=== PATIENT | male | born 1950 | race Caucasian/White ===

== ENCOUNTER 2020-05-03 21:03 | Emergency (ER) | payer MEDICARE, OTHER ==
[2020-05-03] MEDS ORDERED: Magnesium Citrate Solution 296 ML Bottle PO ONE (21:15)
[2020-05-03] MEDS: HYDROmorphone 1 MG/ML Syringe IVPUSH PRN ×2 (22:07→23:01)
[2020-05-03 22:29] LABS: CHLORIDE,CL 100 mEq/L (98-106); SODIUM,NA 140 mEq/L (136-145)
[2020-05-03] MEDS ORDERED: Acetaminophen/oxyCODONE 325-5 MG Tab PO ONE (22:47)
--- NOTE | 2020-05-03 22:59 | EDM.PDOC ---
ED HPI GENERAL MEDICAL PROBLEM - General Chief Complaint: Abdominal Pain Stated Complaint: abd fullness/constipation Time Seen by Provider: 05/03/20 21:32 Source of Information: Reports: Patient, Old Records History Limitations: Reports: No Limitations - History of Present Illness INITIAL COMMENTS - FREE TEXT/NARRATIVE: Jae is a 69 yo male who presents to the ED with c/o right sided flank pain. He feels like he is constipated as he has severe pain and pressure to right side. Reports he has not had a BM in 4 days and was getting IV pain medication while recently hospitalized in [place]. Does report he had a procedure done at [facility] today for right sided hydronephrosis. He reports pain is 8/10. He appears very uncomfortable, frequently changing positions in attempt to get comfortable. Is passing flatus, but it is minimal. He denies any fever, chills, N/V/D, chest pain, shortness of breath, urinary symptoms. Onset: Today Duration: Getting Worse Location: Reports: Abdomen (right flank) Quality: Reports: Sharp, Stabbing Severity: Severe Improves with: Reports: None Associated Symptoms: Reports: No Other Symptoms Middle Abdomen Pain Score (Numeric/FACES): 8 - Related Data Allergies Allergy/AdvReac Type Severity Reaction Status Date / Time shellfish derived Allergy Hives Verified 05/03/20 21:19 Home Meds: Home Meds . [Unable to Verify Home Med List] 05/03/20 [History] Past Medical History Cardiovascular History: Reports: High Cholesterol, Hypertension Endocrine/Metabolic History: Reports: Diabetes, Type II - Past Surgical History HEENT Surgical History: Reports: Tonsillectomy Social & Family History - Family History Family Medical History: No Pertinent Family History - Tobacco Use Tobacco Use Status *Q: Current Every Day Tobacco User Years of Tobacco use: 30 Packs/Tins Daily: 0.5 - Caffeine Use Caffeine Use: Reports: None - Recreational Drug Use Recreational Drug Use: No ED ROS GENERAL - Review of Systems Review Of Systems: Comprehensive ROS is negative, except as noted in HPI. ED EXAM, RENAL/ - Physical Exam Exam: See Below Exam Limited By: No Limitations General Appearance: Alert, WD/WN, No Apparent Distress Neck: Normal Inspection, Supple, Non-Tender, Full Range of Motion Respiratory/Chest: No Respiratory Distress, Lungs Clear, Normal Breath Sounds, No Accessory Muscle Use, Chest Non-Tender Cardiovascular: Normal Peripheral Pulses, Regular Rate, Rhythm, No Edema, No Gallop, No JVD, No Murmur, No Rub GI/Abdominal: Soft, Tender (RUQ), Abnormal Bowel Sounds (hypoactive). No: Guarding, Rigid, Rebound Back Exam: Normal Inspection, Full Range of Motion. No: CVA Tenderness (L), CVA Tenderness (R) Extremities: Normal Inspection, Normal Range of Motion, Non-Tender, Normal Capillary Refill, No Pedal Edema Neurological: Alert, Oriented, CN II-XII Intact, Normal Cognition, Normal Gait, Normal Reflexes, No Motor/Sensory Deficits Psychiatric: Anxious Skin Exam: Warm, Dry, Intact, Normal Color, No Rash Course - Vital Signs Last Recorded V/S: Last Vital Signs Temp 98.7 F 05/03/20 21:04 Pulse 69 05/03/20 21:04 Resp 20 05/03/20 21:04 BP 152/73 H 05/03/20 21:04 Pulse Ox 96 05/03/20 21:04 - Orders/Labs/Meds Orders: Active Orders 24 hr Category Date Time Status Enema [RC] ASDIRECTED Care 05/03/20 22:04 Active Enema [RC] ASDIRECTED Care 05/03/20 22:23 Active Abdomen 2V AP Flat Upright [CR] Stat Exams 05/03/20 21:15 Ordered Abdomen Pelvis wo Cont [CT] Routine Exams 05/03/20 Taken UA RFX MAXX AND CULT IF INDIC [URIN] Stat Lab 05/03/20 22:14 Ordered HYDROmorphone [Dilaudid] Med 05/03/20 22:00 Active 1 mg IVPUSH Q1H PRN Medication Orders Hydromorphone HCl (Hydromorphone 1 Mg/Ml Syringe) 1 mg IVPUSH Q1H PRN PRN Reason: Pain Last Admin: 05/03/20 22:07 Dose: 1 mg Documented by: SERENITY Labs: Laboratory Tests 05/03/20 05/03/20 Range/Units 22:02 22:02 WBC 7.2 (5.0-10.0) 10^3/uL RBC 4.28 L (4.50-6.00) 10^6/uL Hgb 12.0 L (14.0-18.0) g/dL Hct 37.0 L (40.0-54.0) % MCV 86.4 (82.0-94.0) fL MCH 28.0 (27.0-32.0) pg MCHC 32.4 L (33.0-38.0) g/dL RDW Coeff of Olga 14.8 (11.0-15.0) % Plt Count 263 (150-400) 10^3/uL Neut % (Auto) 81.4 (35-85) % Lymph % (Auto) 8.9 L (10-55) % [place] % (Auto) 8.7 (0-16) % Eos % (Auto) 0.7 (0-5) % Baso % (Auto) 0.3 (0-3) % Neut # (Auto) 5.87 (1.80-7.00) 10^3/uL Lymph # (Auto) 0.64 L (1.00-4.80) 10^3/uL [place] # (Auto) 0.63 (0.00-0.80) 10^3/uL Eos # (Auto) 0.05 (0.00-0.45) 10^3/uL Baso # (Auto) 0.02 10^3/uL Sodium 140 (136-145) mEq/L Potassium 3.6 (3.5-5.0) mEq/L Chloride 100 (98-106) mEq/L Carbon Dioxide 27 (21-32) mmol/L BUN 19 H (7-18) mg/dL Creatinine 2.0 H (0.7-1.3) mg/dL Est Cr Clr Drug Dosing 34.20 mL/min Estimated GFR (MDRD) 33 L (>=60) mL/min Glucose 139 H (75-99) mg/dL Calcium 9.1 (8.4-10.1) mg/dL Total Bilirubin 0.4 (0.0-1.0) mg/dL AST 17 (15-37) U/L ALT 22 (12-78) U/L Alkaline Phosphatase 76 (46-116) U/L C-Reactive Protein < 0.2 L (0.2-0.8) mg/dL Total Protein 7.2 (6.4-8.2) g/dL Albumin 3.8 (3.4-5.0) g/dL Meds: Medications Generic Name Dose Route Start Last Admin Trade Name Anna PRN Reason Stop Dose Admin Hydromorphone HCl 1 mg 05/03/20 22:00 05/03/20 22:07 Hydromorphone 1 Mg/Ml Syringe IVPUSH 1 mg Q1H PRN Administration Pain Discontinued Medications Generic Name Dose Route Start Last Admin Trade Name Anna PRN Reason Stop Dose Admin Magnesium Citrate 1 ml 05/03/20 21:15 05/03/20 21:33 Magnesium Citrate Solution 296 Ml Bottle PO 05/03/20 21:16 295 ml ONETIME ONE Administration Oxycodone/Acetaminophen 1 tab 05/03/20 22:47 Acetaminophen/Oxycodone 325-5 Mg Tab PO 05/03/20 22:48 ONETIME ONE - Re-Assessments/Exams Free Text/Narrative Re-Assessment/Exam: Consulted with [facility] urologist, Dr. Hickman, who did patients procedure today. He recommends toradol for pain and if unable to manage pain, patient will need a nephrostomy tube. Patient did recieve 1 mg Dilaudid, which did help alleviate pain, but patient remains in distress due to pain. He is pacing around trying to find comfortable position. Labs now resulted and reveals creatinine of 2.0, which is up from creatinine of 1.6 on 05/01/2020. I am not comfortable giving him Toradol with creatinine elevated. Again consulted with [facility] one call. Discussed case with Dr. Drake who accepted the patient for transfer. Patient will be admitted for pain control overnight and plan for nephrostomy tube in am. Patient wishes to transfer via private vehicle. Will give patient another dose of IV dilaudid as well as Percocet for pain management enroute. Discussed that we could arrange for EMS transfer so he could receive pain medications enroute, but patient wishes to go via private vehicle. Discussed risks and benefits of transfer with patient. Risks of transfer include worsening of condition, pain, MVA enroute. Benefits of transfer include consultation for nephrostomy tube and pain relief. Risks of nontransfer include worsening of condition and pain. Benefits of nontransfer include convenience. Patient verbalized understanding and was agreeable to transfer via private vehicle. Departure - Departure Time of Disposition: 22:54 Disposition: DC/Tfer to Acute Hospital 02 Condition: Fair Clinical Impression: Hydronephrosis of right kidney Constipation Qualifiers: Constipation type: drug induced constipation Qualified Code(s): K59.03 - Drug induced constipation - Discharge Information *PRESCRIPTION DRUG MONITORING PROGRAM REVIEWED*: Not Applicable *COPY OF PRESCRIPTION DRUG MONITORING REPORT IN PATIENT NIYA: Not Applicable Instructions: Hydronephrosis Forms: ED Department Discharge Additional Instructions: - Discussed with patient that he will be transferred to [place] via private vehicle as he will likely need a nephrostomy tube to drain his right kidney - Go directly to [facility] where you will be admitted for pain control overnight and nephrostomy tube placement in the morning. - Nothing to eat or drink after midnight while enroute, as you will have procedure tomorrow Sepsis Event Note (ED) - Evaluation Sepsis Screening Result: No Definite Risk - Focused Exam Vital Signs: Vital Signs Temp Pulse Resp BP Pulse Ox 05/03/20 21:04 98.7 F 69 20 152/73 H 96 - Problem List & Annotations (1) Constipation SNOMED Code(s): 98404409 Code(s): K59.00 - CONSTIPATION, UNSPECIFIED Status: Acute Current Visit: Yes Qualifiers: Qualified Code(s): K59.03 - Drug induced constipation (2) Hydronephrosis of right kidney SNOMED Code(s): 15122620 Code(s): N13.30 - UNSPECIFIED HYDRONEPHROSIS Status: Acute Current Visit: Yes - Problem List Review Problem List Initiated/Reviewed/Updated: Yes - My Orders Last 24 Hours: My Active Orders 05/03/20 Abdomen Pelvis wo Cont [CT] Routine 05/03/20 21:15 Abdomen 2V AP Flat Upright [CR] Stat 05/03/20 22:00 HYDROmorphone [Dilaudid] 1 mg IVPUSH Q1H PRN 05/03/20 22:04 Enema [RC] ASDIRECTED 05/03/20 22:14 UA RFX MAXX AND CULT IF INDIC [URIN] Stat 05/03/20 22:23 Enema [RC] ASDIRECTED - Assessment/Plan Last 24 Hours: My Active Orders 05/03/20 Abdomen Pelvis wo Cont [CT] Routine 05/03/20 21:15 Abdomen 2V AP Flat Upright [CR] Stat 05/03/20 22:00 HYDROmorphone [Dilaudid] 1 mg IVPUSH Q1H PRN 05/03/20 22:04 Enema [RC] ASDIRECTED 05/03/20 22:14 UA RFX MAXX AND CULT IF INDIC [URIN] Stat 05/03/20 22:23 Enema [RC] ASDIRECTED Assessment:: Hydronephrosis, Right Constipation Plan: 69 yo presents to Ed with c/o right sided flank/abdominal pain. Initially felt as though he was constipated as he had not had BM in 4 days and was recieving pain medications while hospitalized in [place]. After further discussion was noted to have cysto with retrograde pyelography today. Opted to proceed with CT abdomen/pelvis. CT did reveal significant right sided hydronephrosis, with what appears to be contrast dye from procedure this morning. Does have moderate stool burden, but thought to be less likely cause of pain. Patient did receive mag citrate as well as Fleets enema with little results of stool. Throughout Ed stay he was very uncomfortable, rating pain 8/10. Was given total of 2 mg Dilaudid and 5-325 mg Percocet. Pain did improve slightly following administration. Lab work significant for creatinine 2.0. Creatinine was 1.6 two days ago. Consulted with [facility] [place] who accepted the patient for transfer. Patient wished to transfer via private vehicle. Patient discharged from facility in satisfactory condition.
== END 2020-05-03 23:10 ==
LOC: CC.ED 21:03
DX: K59.03 Drug induced constipation (principal); T50.995A Adverse effect of other drugs, medicaments and biological substances, initial encounter; N13.30 Unspecified hydronephrosis; I10 Essential (primary) hypertension; E11.9 Type 2 diabetes mellitus without complications; Z72.0 Tobacco use; Z91.013 Allergy to seafood
CPT/HCPCS: 36415; 74176; 80053; 85025; 86140; 96374; 96376; 99285; A9270; J1170; 99284

== ENCOUNTER → 2022-10-02 | Day surgery (SDC) | payer MEDICARE, OTHER ==
[~2022-10-02] MED LIST: Flumazenil 0.1 MG/ML 10 ML MDV ONE; Ketamine 200 MG/20 ML MDV ONE; Lactated Ringers 1,000 ML IV SCH; Midazolam 1 MG/ML 2 ML SDV ONE; Propofol 200 MG/20 ML SDV ONE; fentaNYL 50 MCG/ML SDV ONE
== END ==
LOC: CC.SDS 07:13
PROVIDERS: ATTEND Family Medicine
DX: Z12.11 Encounter for screening for malignant neoplasm of colon (principal); K57.30 Diverticulosis of large intestine without perforation or abscess without bleeding; E11.9 Type 2 diabetes mellitus without complications; I10 Essential (primary) hypertension; E78.00 Pure hypercholesterolemia, unspecified; N28.9 Disorder of kidney and ureter, unspecified; Z91.013 Allergy to seafood; Z79.82 Long term (current) use of aspirin; Z79.899 Other long term (current) drug therapy; Z87.891 Personal history of nicotine dependence
CPT/HCPCS: J2250; J2704; J3010; J3490; J7120